=== PATIENT | male | born 1945 | race Asian ===

== ENCOUNTER 2024-03-27 17:38 | Inpatient (IN) | payer OTHER ==
[~2024-03-27] VITALS: Ht 167.6 cm; Wt 73.9 kg
[~2024-03-27 17:38] MED LIST: LISI-894 PO; PRAM1.5T12 PO; TERA2CAP10 PO
[2024-03-27 17:55] LABS: BASOPHILS % (AUTO) 0.4 % (0.0-2.0); EOSINOPHILS % (AUTO) 2.5 % (1.0-6.0); HEMATOCRIT 38.8 % (41-53); HEMOGLOBIN 13.1 g/dL (13.5-17.5); LYMPHOCYTES # (AUTO) 0.9 K/uL (1.0-4.8); LYMPHOCYTES % (AUTO) 18.8 % (22.0-44.0); MEAN CORPUSCULAR HEMOGLOBIN 30.5 pg (26.0-34.0); MEAN CORPUSCULAR HGB CONC 33.7 G/dL (31.0-37.0); MEAN CORPUSCULAR VOLUME 90 fL (80-100); MONOCYTES # (AUTO) 0.3 K/uL (0.1-1.0); MONOCYTES % (AUTO) 5.3 % (2.0-9.0); NEUTROPHILS # (AUTO) 3.6 K/uL (1.8-7.7); PLATELET COUNT (AUTO) 227 K/uL (150-450); RED CELL DISTRIBUTION WIDTH 14.2 % (11.5-14.5)
[2024-03-27 18:04] LABS: ANION GAP 10 mmol/L (8-16); CALCIUM, TOTAL 8.7 mg/dL (8.8-10.5); CARBON DIOXIDE 25 mmol/L (22-29); CHLORIDE 103 mmol/L (98-107); CREATININE 1.04 mg/dL (0.60-1.30); GLOMERULAR FILTR. RATE CALC > 60 mL/min (>60); GLUCOSE,RANDOM 124 mg/dL (70-110); POTASSIUM 4.1 mmol/L (3.5-5.1); SODIUM SERUM 137 mmol/L (136-145); UREA NITROGEN, BLOOD 20 mg/dL (7-18)
[2024-03-27 18:11] LABS: B-TYPE NATRIURETIC PEPTIDE 52 pg/mL (0-100)
[2024-03-27 18:12] LABS: LACTIC ACID 0.9 mmol/L (0.4-2.0)
[2024-03-27 18:13] LABS: TROPONIN I-HIGH SENSITIVITY 5 ng/L (<76)
[2024-03-27 18:14] LABS: ALANINE AMINOTRANSFERASE 2 U/L (12-78); ALBUMIN 3.8 g/dL (3.4-5.0); ALKALINE PHOSPHATASE 60 U/L (46-116); ASPARTATE AMINOTRANSFERASE 13 U/L (15-37); BILIRUBIN,TOTAL 0.6 mg/dL (0.1-1.0); LIPASE 30 U/L (16-77)
[2024-03-27 18:19] LABS: ALCOHOL, BLOOD (SERUM) < 3 mg/dL (0-10)
[2024-03-27] MEDS ORDERED: 0.9% SODIUM CHLORIDE 10 ML SYRINGE IVP ONE (18:19)
[2024-03-27] MEDS ORDERED: SODIUM CHLORIDE 0.9% 100 ML ONE (18:19)
[2024-03-27] MEDS ORDERED: IOHEXOL 300 MG/ML 100 ML VIAL ONE (18:19)
[2024-03-27 18:34] LABS: PROTHROMBIN TIME 10.7 SEC (9.4-11.6)
[2024-03-27 18:36] LABS: APPEARANCE,URINE HAZY (CLEAR); BILIRUBIN,URINE NEGATIVE (NEGATIVE); COLOR,URINE YELLOW (YELLOW); GLUCOSE, URINE (UA) NEGATIVE (NEGATIVE); KETONES,URINE TRACE mg/dL (NEGATIVE); LEUKOCYTE ESTERASE ,URINE LARGE (NEGATIVE); NITRATE,URINE POSITIVE (NEGATIVE); OCCULT BLOOD,URINE SMALL (NEGATIVE); PH,URINE 5.5 (5.0-8.0); PH,URINE DRUG SCREEN 5.5 (5.0-8.0); PROTEIN,URINE TRACE mg/dL (NEGATIVE); SPECIFIC GRAVITIY, URINE 1.027 (1.003-1.030); UROBILINOGEN,URINE <=1.0 mg/dL (<=1.0)
[2024-03-27 18:47] LABS: AMPHET/METH SCREEN,URINE NEGATIVE (NEGATIVE); BARBITURATE SCREEN, URINE NEGATIVE (NEGATIVE); BENZODIAZEPINES SCREEN,URINE NEGATIVE (NEGATIVE); CANNABINOID SCREEN,URINE NEGATIVE (NEGATIVE); COCAINE SCREEN,URINE NEGATIVE (NEGATIVE); METHADONE SCREEN, URINE NEGATIVE (NEGATIVE); OPIATE SCREEN,URINE NEGATIVE (NEGATIVE); PHENCYCLIDINE SCREEN,URINE NEGATIVE (NEGATIVE)
[2024-03-27 18:51] LABS: ALCOHOL, URINE DRUG SCREEN NEGATIVE (NEGATIVE)
[2024-03-27] MEDS: LORazepam 2 MG/ML VIAL IVP ONE (18:51)
[2024-03-27] MEDS: ASPIRIN 300 MG RECTAL SUPPOSITORY PR ONE (18:51)
[2024-03-27 18:53] LABS: RBC,URINE 0-2 /HPF (0-2)
[2024-03-27 18:54] LABS: BACTERIA,URINE Many /HPF (None Seen); WBC,URINE >100 /HPF (0-5)
[2024-03-27] MEDS: HydrALAZINE HCL 20 MG/ML VIAL IVP ONE ×2 (19:16→23:43)
[2024-03-27] MEDS: CefTRIAXone 1 GM/DEXTROSE 50 ML IV ONE (19:58)
[2024-03-27] MEDS: ACETAMINOPHEN 650 MG RECTAL SUPPOSITORY PR ONE (21:19)
[2024-03-27] MEDS: SODIUM CHLORIDE 0.9% 2,200 ML IV ONE (21:19)
[2024-03-27] MEDS ORDERED: VENL-193 PO (21:31)
[2024-03-27] MEDS ORDERED: CARB1TAB36 PO (21:31)
[2024-03-27] MEDS ORDERED: LOSA-381 PO (21:31)
[2024-03-27] MEDS ORDERED: ONDANSETRON HCL 4 MG/2 ML VIAL IVP PRN (21:45)
[2024-03-27] MEDS ORDERED: IPRATROPIUM BROMIDE 0.5 MG/2.5 ML NEB SOLUTION NEB PRN (21:45)
[2024-03-27] MEDS ORDERED: ACETAMINOPHEN 325 MG TABLET PO PRN (21:45)
[2024-03-27] MEDS ORDERED: ALBUTEROL SULFATE 2.5 MG/0.5 ML NEB SOLUTION NEB PRN (21:45)
[2024-03-27] MEDS: HEPARIN SODIUM,PORCINE 5,000 UNITS/ML VIAL SQ SCH (23:11)
[2024-03-28] VITALS: BP 146/104; PULSE 95; RESP 19; O2SAT 95
[2024-03-28] MEDS ORDERED: HydrALAZINE HCL 20 MG/ML VIAL IVP PRN
[2024-03-28 01:11] LABS: TROPONIN I-HIGH SENSITIVITY 11 ng/L (<76)
[2024-03-28] MEDS: ASPIRIN 300 MG RECTAL SUPPOSITORY PR ONE (01:49)
[2024-03-28 04:00] VITALS: BP 153/99; PULSE 79; RESP 18; TEMP 98.4; O2SAT 98
[2024-03-28 07:34] LABS: BASOPHILS % (AUTO) 0.4 % (0.0-2.0); EOSINOPHILS % (AUTO) 2.9 % (1.0-6.0); HEMATOCRIT 37.3 % (41-53); HEMOGLOBIN 12.7 g/dL (13.5-17.5); LYMPHOCYTES # (AUTO) 1.5 K/uL (1.0-4.8); LYMPHOCYTES % (AUTO) 18.7 % (22.0-44.0); MEAN CORPUSCULAR HEMOGLOBIN 30.7 pg (26.0-34.0); MEAN CORPUSCULAR HGB CONC 34.1 G/dL (31.0-37.0); MEAN CORPUSCULAR VOLUME 90 fL (80-100); MONOCYTES # (AUTO) 0.5 K/uL (0.1-1.0); NEUTROPHILS # (AUTO) 5.5 K/uL (1.8-7.7); PLATELET COUNT (AUTO) 217 K/uL (150-450); RED BLOOD CELL COUNT(AUTO) 4.14 MIL/uL (4.50-5.90); RED CELL DISTRIBUTION WIDTH 13.9 % (11.5-14.5); WHITE BLOOD COUNT (AUTO) 7.8 K/uL (4.5-11.0)
[2024-03-28 07:35] LABS: ANION GAP 9 mmol/L (8-16); CALCIUM, TOTAL 7.6 mg/dL (8.8-10.5); CARBON DIOXIDE 23 mmol/L (22-29); CHLORIDE 106 mmol/L (98-107); GLOMERULAR FILTR. RATE CALC > 60 mL/min (>60); GLUCOSE,RANDOM 84 mg/dL (70-110); POTASSIUM 3.4 mmol/L (3.5-5.1); SODIUM SERUM 138 mmol/L (136-145); UREA NITROGEN, BLOOD 13 mg/dL (7-18)
[2024-03-28 07:43] LABS: TROPONIN I-HIGH SENSITIVITY 12 ng/L (<76)
[2024-03-28 08:41] VITALS: BP 166/117; PULSE 69; RESP 19; TEMP 98.2; O2SAT 98
[2024-03-28 11:30] VITALS: BP 185/97; PULSE 67; RESP 20; TEMP 98; O2SAT 100
[2024-03-28] MEDS ORDERED: VENL-67 PO (11:34)
[2024-03-28] MEDS: ATORVASTATIN CALCIUM 40 MG TABLET PO SCH (12:28)
[2024-03-28] MEDS: DOCUSATE SODIUM 100 MG CAPSULE PO SCH (12:28)
[2024-03-28] MEDS: ASPIRIN 81 MG CHEWABLE TABLET PO SCH (12:28)
[2024-03-28] MEDS: LOSARTAN POTASSIUM 25 MG TABLET PO SCH (12:28)
[2024-03-28] MEDS: CARBIDOPA/LEVODOPA 25-100 MG TABLET PO SCH (12:29)
[2024-03-28 15:46] VITALS: BP 136/79; PULSE 64; RESP 19; TEMP 98.1; O2SAT 100
[2024-03-28] MEDS: LORazepam 2 MG/ML VIAL IVP ONE (16:51)
[2024-03-28] MEDS ORDERED: CefTRIAXone 1 GM/DEXTROSE 50 ML IV SCH (20:00)
== END 2024-03-28 20:05 | disposition short-term general hospital (02) | DRG 871 ==
LOC: EMS 17:38 → EDH 21:36 → 5S 03-28 00:39
PROVIDERS: ADMIT Internal Medicine; ATTEND Internal Medicine
DX: A41.9 Sepsis, unspecified organism (principal); G93.41 Metabolic encephalopathy; J69.0 Pneumonitis due to inhalation of food and vomit; N39.0 Urinary tract infection, site not specified; G20.A1 Parkinson's disease without dyskinesia, without mention of fluctuations; I10 Essential (primary) hypertension; N40.0 Benign prostatic hyperplasia without lower urinary tract symptoms; Z79.899 Other long term (current) drug therapy
CPT/HCPCS: 70200; 70496; 70498; 71045; 80048; 80053; 80307; 81001; 82948; 83605; 83690; 83735; 83880; 84145; 84484; 85025; 85610; 85730; 87040; 87077; 87086; 87186; 92610; 93005; 99285; G0378; G0480; J0360; J0696; J1644; J2060; J7030; J7050; Q9967; 36415-L1; 36415-TC; 70450; 70450-TC